=== PATIENT | female | born 1960 ===

== ENCOUNTER → 2019-09-02 | Outpatient (CLI) | payer SELFPAY ==
--- NOTE | 2019-09-02 18:13 | Diagnostic Imaging Report ---
PROCEDURE: CT lumbar spine without contrast. TECHNIQUE: Multiple contiguous axial images were obtained through the lumbar spine without the use of intravenous contrast. Sagittal and coronal reformations were then performed. Auto Exposure Controls were utilized during the CT exam to meet ALARA standards for radiation dose reduction. INDICATION: Degenerative disc disease and chronic back pain. Lumbar spinal curvature and alignment are unremarkable. Vertebral body heights are maintained. There is mild disc space narrowing most pronounced at L2-L3, L3-L4 and L5-S1. There is diffuse annular bulging of the L2-L3 disc which results in mild bilateral neural foraminal stenosis. Similar bulging at L3-L4 results in minimal bilateral neural foraminal stenosis with disc bulging at L4-L5 causing mild spinal and moderate bilateral neural foraminal stenosis. There is also disc bulging and endplate spurring at L5-S1 causing moderate bilateral neural foraminal stenosis. There is no evidence of fracture or subluxation. No paraspinous hematoma is identified. IMPRESSION: Rather diffuse disc bulging causing mild to moderate spinal stenoses, most pronounced at L2-L3 and L5-S1. Dictated by: Dictated on workstation # [id number]
--- NOTE | 2019-09-02 18:34 | Diagnostic Imaging Report ---
PROCEDURE: CT neck soft tissue without contrast. TECHNIQUE: Multiple contiguous axial images were obtained through the neck without the use of intravenous contrast. Auto Exposure Controls were utilized during the CT exam to meet ALARA standards for radiation dose reduction. INDICATION: Right neck pain Unenhanced images of the skull base reveal no evidence of focal abnormality. There is no evidence of neck mass. Fat-containing lymph nodes in the submandibular regions measure up to approximately 2.3 cm long axis. Parotid and submandibular salivary glands are unremarkable in appearance. There is no other evidence of pathologic adenopathy along the course of the neck. There is reversal of the cervical lordosis with mild diffuse degenerative disc disease most pronounced at C5-C6 and C6-C7. In addition, there is extensive lucency in the posterior most left maxillary alveolar ridge which may be due to periapical abscess. There is associated mural thickening within the left maxillary sinus which may be due to associated sinus disease. IMPRESSION: Mildly prominent submandibular salivary glands without other evidence of acute abnormality or mass in the neck. There is no evidence of airway obstruction. There does appear to be dental disease involving the posterior left maxillary alveolar ridge which may extend into the maxillary sinus. Dental consultation would be useful. Dictated by: Dictated on workstation # [id number]
== END ==
LOC: RAD FS 12:21
PROVIDERS: ATTEND Nurse Practitioner Family
DX: M48.07 Spinal stenosis, lumbosacral region (principal); M51.27 Other intervertebral disc displacement, lumbosacral region; M51.36 Other intervertebral disc degeneration, lumbar region; M50.30 Other cervical disc degeneration, unspecified cervical region
CPT/HCPCS: 70490; 72131